=== PATIENT | female | born 1950 | race Caucasian/White ===

== ENCOUNTER → 2016-10-18 | Outpatient (CLI) | payer MEDICARE, OTHER ==
[~2016-10-18] MED LIST: DUO-KAPS1 CAP PO; NATURAL FLAX1000 MG PO; NO HOME MEDICATIONS; OMEGA 31000 MG PO; RESTASIS0.05% OP; SENSIPAR30 MG PO; SYNTHROID0.112 MG PO; ULTRAM 50MG TAB50 MG PO; VESICARE10 MG PO; ZOLOFT 100MG100 MG PO
== END ==
LOC: MC.RAD 10:44
DX: Z12.31 Encounter for screening mammogram for malignant neoplasm of breast (principal)

== ENCOUNTER → 2017-11-09 | Outpatient (CLI) | payer MEDICARE, OTHER | LOC: MC.RAD 09:00 | DX: Z12.31 Encounter for screening mammogram for malignant neoplasm of breast (principal) ==

== ENCOUNTER → 2018-01-04 | Outpatient (CLI) | payer MEDICARE, OTHER | LOC: COL.RAD 07:11 | DX: K59.00 Constipation, unspecified (principal); K57.30 Diverticulosis of large intestine without perforation or abscess without bleeding; K76.9 Liver disease, unspecified; M54.5 Low back pain | CPT/HCPCS: Q9967 ==

== ENCOUNTER → 2018-12-10 | Outpatient (CLI) | payer MEDICARE, OTHER | LOC: MC.RAD 10:11 | DX: Z12.31 Encounter for screening mammogram for malignant neoplasm of breast (principal) ==

== ENCOUNTER → 2020-04-13 | Outpatient (CLI) | payer MEDICARE, OTHER ==
[~2020-04-13] MED LIST changes: +OMNICEF 300MG300 MG PO; +PROBIOTIC GOLD1 EACH PO; +SYNTHROID0.112 MG/T PO
== END ==
LOC: COL.RAD 09:35
DX: N10 Acute pyelonephritis (principal)

== ENCOUNTER → 2021-02-12 | Outpatient (CLI) | payer MEDICARE, OTHER | LOC: MC.RAD 10:30 | DX: Z12.31 Encounter for screening mammogram for malignant neoplasm of breast (principal) ==

== ENCOUNTER → 2022-02-14 | Outpatient (CLI) | payer MEDICARE, OTHER | LOC: MC.RAD 14:45 | DX: Z12.31 Encounter for screening mammogram for malignant neoplasm of breast (principal) ==

== ENCOUNTER → 2022-05-13 | Outpatient (CLI) | payer MEDICARE | LOC: COL.RAD 10:46 | DX: R22.2 Localized swelling, mass and lump, trunk (principal) ==

== ENCOUNTER → 2024-06-13 | Outpatient (CLI) | payer MEDICARE ==
[~2024-06-13] MED LIST changes: +BUSPAR10 MG PO; +BUSPAR5 MG PO; +CALAN120 MG PO; +CARAFATE 1GM1 G PO; +COMBO; +CRANBERRY215 MG; +KLOR-CON 1010 MEQ PO; +LEVAQUIN 5500 MG/TA1 PO; +LIPITOR20 MG PO; +MULTI VITAMINS1 TAB; +OMEGA-3 1000 MG1 CAP; +PEPCID40 MG PO; +PROFERRIN ES12 MG; +PROTONIX 40MG T40 MG PO; +TOPROL XL 25MG25 MG PO; +TYLENOL 325MG325 MG; +[UNRECOGNIZED DRUG - OTHER]
== END ==
LOC: COL.RAD 08:30
DX: R13.12 Dysphagia, oropharyngeal phase (principal)